=== PATIENT | female | born 1955 | race Two or more races ===

== ENCOUNTER 2017-01-09 21:07 | Emergency (ER) | payer OTHER ==
[~2017-01-09] VITALS: Ht 142.2 cm; Wt 70.3 kg
[2017-01-09 22:01] VITALS: BP 137/70
[2017-01-09] MEDS ORDERED: TRAMADOL HCL 50 MG TABLET ONE (23:50)
[2017-01-10] MEDS ORDERED: TRAMADOL HCL 50 MG TABLET PO ONE
== END 2017-01-10 00:04 | disposition home or self-care (01) ==
LOC: ER 21:10
DX: M25.561 Pain in right knee (principal); G89.29 Other chronic pain; E11.9 Type 2 diabetes mellitus without complications; I10 Essential (primary) hypertension
CPT/HCPCS: 99282; A4606; Z7610

== ENCOUNTER 2019-07-10 14:26 | Emergency (ER) | payer OTHER ==
[~2019-07-10] VITALS: Ht 142.2 cm; Wt 72.6 kg
[2019-07-10 14:38] VITALS: BP 161/73
== END 2019-07-10 16:38 | disposition home or self-care (01) ==
LOC: ER 14:30
DX: J02.9 Acute pharyngitis, unspecified (principal); I10 Essential (primary) hypertension; E11.9 Type 2 diabetes mellitus without complications; R51 Headache; Z98.890 Other specified postprocedural states
CPT/HCPCS: 71046

== ENCOUNTER 2021-04-24 22:11 | Emergency (ER) | payer OTHER ==
[~2021-04-24] VITALS: Ht 160 cm; Wt 65.8 kg
[~2021-04-24 22:11] MED LIST: HYDR-3972 PO; VALA100026 PO
[2021-04-24] MEDS ORDERED: HYDROCODONE/APAP 5/325MG TABLET ONE (22:44)
--- NOTE | 2021-04-24 22:50 | NUR ---
PT IN ROOM ER 1 Addendum: 04/24/21 at 2250 by JASON ER ROOM 2
[2021-04-24] MEDS ORDERED: HYDROCODONE/APAP 5/325MG TABLET PO ONE (23:00)
[2021-04-24 23:12] LABS: BASOPHILS # (AUTO) 0.1 K/uL (0.0-0.2); BASOPHILS % (AUTO) 0.8 % (0.0-2.0); EOSINOPHILS % (AUTO) 4.4 % (0.0-6.0); HEMATOCRIT 35 % (33-45); HEMOGLOBIN 11.2 g/dL (11.5-14.8); LYMPHOCYTES # (AUTO) 2.1 K/uL (0.8-4.8); LYMPHOCYTES % (AUTO) 28.3 % (20.0-44.0); MEAN CORPUSCULAR HGB CONC 32 g/dl (31.0-36.0); MEAN CORPUSCULAR VOLUME 90 fL (82-100); MONOCYTES # (AUTO) 0.8 K/uL (0.1-1.30); MONOCYTES % (AUTO) 10.7 % (2.0-12.0); NEUTROPHILS # (AUTO) 4.2 K/uL (1.8-8.9); NEUTROPHILS % (AUTO) 55.8 % (43.0-81.0); PLATELET COUNT (AUTO) 232 K/uL (150-450); RED BLOOD CELL COUNT(AUTO) 3.83 MIL/uL (4.0-5.2); WHITE BLOOD COUNT (AUTO) 7.5 K/uL (4.3-11.0)
[2021-04-24 23:21] LABS: CALCIUM, SERUM 8.4 mg/dL (8.5-10.1); CREATININE 0.7 mg/dL (0.6-1.3); POTASSIUM 4.4 mmol/L (3.5-5.1)
[2021-04-24] MEDS ORDERED: TRAM50TA2 PO (23:51)
[2021-04-24] MEDS ORDERED: NAPR-1164 PO (23:51)
--- NOTE | 2021-04-25 00:08 | NUR ---
Patient discharged to home in stable condition.rx and Written and verbal after care instructions given. Patient verbalizes understanding of instruction.
[2021-04-25 00:09] VITALS: BP 131/75
== END 2021-04-25 00:11 | disposition home or self-care (01) ==
LOC: ER 22:15
DX: M25.561 Pain in right knee (principal); M25.562 Pain in left knee; M19.90 Unspecified osteoarthritis, unspecified site; I10 Essential (primary) hypertension; E11.9 Type 2 diabetes mellitus without complications; Z98.890 Other specified postprocedural states; Z79.899 Other long term (current) drug therapy
CPT/HCPCS: 36415; 73560-TC; 73562; 80048-TC; 85025-TC

== ENCOUNTER 2022-04-20 15:13 | Emergency (ER) | payer BC, OTHER ==
[~2022-04-20] VITALS: Ht 144.8 cm; Wt 61.2 kg
[~2022-04-20 15:13] MED LIST changes: +NAPR-1164 PO; +TRAM50TA2 PO
--- NOTE | 2022-04-20 15:44 | NUR ---
BIBFAMILY C/O REDNESS AND ITCHINESS AROUNG GROIN AND VAGINAL AREA [id number]. VITALS ARE WITHIN NORMAL LIMITS. PT CHANGED INTO GOWN. AWAITING MD HOFFMAN.
--- NOTE | 2022-04-20 17:00 | NUR ---
URINE COLLECTED AND SENT
[2022-04-20 17:58] LABS: BILIRUBIN,URINE NEGATIVE (NEGATIVE); COLOR,URINE YELLOW (YELLOW); LEUKOCYTE ESTERASE ,URINE TRACE (NEGATIVE); NITRITE, URINE NEGATIVE (NEGATIVE); PH,URINE 7.5 (5.0-8.0); PROTEIN,URINE NEGATIVE (NEGATIVE); UGLUCOSE >=1000 mg/dL (NEGATIVE); UROBILINOGEN,URINE 0.2 EU/dL (0.2)
[2022-04-20 18:05] LABS: BACTERIA,URINE RARE /HPF (None Seen)
[2022-04-20] MEDS ORDERED: CLOT15CR35 TP (18:20)
[2022-04-20] MEDS ORDERED: CEPH250C PO (18:20)
[2022-04-20 18:26] VITALS: BP 134/79
--- NOTE | 2022-04-20 18:26 | NUR ---
Patient discharged to home in stable condition. Written and verbal after care instructions given. Patient verbalizes understanding of instruction.
== END 2022-04-20 18:27 | disposition home or self-care (01) ==
LOC: ER 15:14
DX: L73.9 Follicular disorder, unspecified (principal); B35.6 Tinea cruris; I10 Essential (primary) hypertension; E11.9 Type 2 diabetes mellitus without complications
CPT/HCPCS: 81001; 87086-TC

== ENCOUNTER 2022-05-26 13:04 | Emergency (ER) | payer BC, OTHER ==
[~2022-05-26] VITALS: Ht 149.9 cm; Wt 61.2 kg
[~2022-05-26 13:04] MED LIST changes: +CEPH250C PO; +CLOT15CR35 TP
[2022-05-26 13:13] VITALS: BP 110/58
[2022-05-26] MEDS ORDERED: KETOROLAC TROMETHAMINE INJ 60 MG/2 ML VIAL IM ONE ×2 (13:30→13:48)
[2022-05-26] MEDS ORDERED: NAPR-1164 PO (14:10)
== END 2022-05-26 14:31 | disposition home or self-care (01) ==
LOC: ER 13:07
DX: M25.562 Pain in left knee (principal); M25.561 Pain in right knee; I10 Essential (primary) hypertension; E11.9 Type 2 diabetes mellitus without complications; M19.90 Unspecified osteoarthritis, unspecified site; Z90.49 Acquired absence of other specified parts of digestive tract; Z79.899 Other long term (current) drug therapy
CPT/HCPCS: 99283; 96372; 73564 ×2; J1885

== ENCOUNTER 2023-05-14 14:21 | Emergency (ER) | payer MEDICARE, OTHER ==
[~2023-05-14] VITALS: Ht 142.2 cm; Wt 61.2 kg
[2023-05-14 14:50] LABS: BASOPHILS # (AUTO) 0.1 K/uL (0.0-0.2); BASOPHILS % (AUTO) 1.3 % (0.0-2.0); EOSINOPHILS # (AUTO) 0.2 K/uL (0.0-0.7); EOSINOPHILS % (AUTO) 4.4 % (0.0-6.0); HEMATOCRIT 36 % (33-45); HEMOGLOBIN 11.9 g/dL (11.5-14.8); LYMPHOCYTES # (AUTO) 1.8 K/uL (0.8-4.8); LYMPHOCYTES % (AUTO) 36.3 % (20.0-44.0); MEAN CORPUSCULAR HEMOGLOBIN 29 PG (26.0-33.0); MEAN CORPUSCULAR HGB CONC 33 g/dl (31.0-36.0); MEAN CORPUSCULAR VOLUME 87 fL (82-100); MONOCYTES # (AUTO) 0.5 K/uL (0.1-1.30); MONOCYTES % (AUTO) 10.4 % (2.0-12.0); NEUTROPHILS # (AUTO) 2.4 K/uL (1.8-8.9); NEUTROPHILS % (AUTO) 47.6 % (43.0-81.0); PLATELET COUNT (AUTO) 239 K/uL (150-450); RED BLOOD CELL COUNT(AUTO) 4.15 MIL/uL (4.0-5.2); RED CELL DISTRIBUTION WIDTH 14.4 % (11.5-15.0)
[2023-05-14 15:04] LABS: CALCIUM, SERUM 8.9 mg/dL (8.5-10.1); CREATININE 0.8 mg/dL (0.6-1.3); POTASSIUM 4.1 mmol/L (3.5-5.1)
[2023-05-14 15:10] LABS: ALBUMIN 3.5 g/dL (3.4-5.0); BILIRUBIN,TOTAL 0.3 mg/dL (0.2-1.0); TOTAL PROTEIN, SERUM 7.4 g/dL (6.4-8.2)
[2023-05-14] MEDS ORDERED: IV NS 0.9% 1,000 ML BAG IV ONE (15:30)
[2023-05-14] MEDS ORDERED: AZIT250T PO (16:32)
[2023-05-14] MEDS ORDERED: BENZ-13 PO (16:32)
[2023-05-14] MEDS ORDERED: ACETAMINOPHEN ES 500 MG TABLET ONE (16:37)
[2023-05-14 16:58] VITALS: BP 160/71; TEMP 98.4; O2SAT 98
[2023-05-14] MEDS ORDERED: ACETAMINOPHEN ES 500 MG TABLET PO ONE (17:00)
== END 2023-05-14 17:17 | disposition home or self-care (01) ==
LOC: ER 14:27
DX: E11.65 Type 2 diabetes mellitus with hyperglycemia (principal); J40 Bronchitis, not specified as acute or chronic; I10 Essential (primary) hypertension; M19.90 Unspecified osteoarthritis, unspecified site; Z20.822 Contact with and (suspected) exposure to COVID-19
CPT/HCPCS: 99285; 96360; 71045; 87426; 93005; 87804 ×2; 85025; 36415; 80053; 83880; J7030; C9803

== ENCOUNTER 2024-03-25 11:17 | Emergency (ER) | payer MEDICARE, OTHER ==
[~2024-03-25] VITALS: Ht 142.2 cm; Wt 61.2 kg
[~2024-03-25 11:17] MED LIST changes: +AZIT250T PO; +BENZ-13 PO
[2024-03-25] MEDS ORDERED: KETOROLAC TROMETHAMINE 15 MG/ML VIAL ONE (12:04)
[2024-03-25] MEDS ORDERED: LIDOCAINE 5% (PATCH) 1 EA PATCH TP ONE (12:04)
[2024-03-25] MEDS ORDERED: HYDROCODONE/APAP 5/325MG TABLET ONE (12:05)
[2024-03-25] MEDS ORDERED: CYCLOBENZAPRINE 10 MG TABLET ONE (12:05)
[2024-03-25] MEDS: LIDOCAINE 5% (PATCH) 1 EA PATCH TP STA (12:24)
[2024-03-25] MEDS: CYCLOBENZAPRINE 10 MG TABLET PO ONE (12:25)
[2024-03-25] MEDS: HYDROCODONE/APAP 5/325MG TABLET PO ONE (12:25)
[2024-03-25] MEDS: KETOROLAC TROMETHAMINE 15 MG/ML VIAL IM ONE (12:25)
[2024-03-25] MEDS ORDERED: IBUP-1955 PO (13:17)
[2024-03-25] MEDS ORDERED: HYDR-4303 PO (13:17)
[2024-03-25] MEDS ORDERED: METH4TAB17 PO (13:19)
[2024-03-25] MEDS ORDERED: LIDO30AD10 TP (13:19)
[2024-03-25 13:28] VITALS: BP 146/83; TEMP 98; O2SAT 98
== END 2024-03-25 13:29 | disposition home or self-care (01) ==
LOC: ER 11:22
DX: G89.29 Other chronic pain (principal); M54.59 Other low back pain; I10 Essential (primary) hypertension; E11.9 Type 2 diabetes mellitus without complications
CPT/HCPCS: 99284; 96372; J1885